=== PATIENT | female | born 1975 | race Caucasian/White ===

== ENCOUNTER 2020-12-07 07:28 | Inpatient (IN) ==
--- NOTE | 2020-11-23 15:44 | PAT Medication Instructions ---
Medication Instructions Date of Service November 23, 2020 Home Medications sumatriptan succinate [Imitrex] 100 mg PO UD PRN Take morning of surgery With a small sip of water, OTHERWISE NOTHING TO EAT OR DRINK AFTER MIDNIGHT: sumatriptan succinate [Imitrex] 100 mg PO UD PRN (if needed) Other Notes If you have any questions please call us at [phone] or [phone] or [phone] or [phone]
--- NOTE | 2020-11-24 14:45 | Anesthesiology Consultation ---
Date of Service November 24, 2020 Assessment & Plan (1) Encounter for pre-operative examination: COVID screening: Per assessment on 11/24: Travel screen negative, no known COVID- 19 positive contacts or current COVID-19 related symptoms. Surgeon arranging preop COVID testing. Awaiting results. Chart Review Chart Review: Acceptable Risk for Surgery and Patient seen in Pre Admission Testing Teaching & Discussion Pre-Anesthesia Teaching/Discussion Notes: Instructed NPO after midnight before surgery,except medications with 15 cc of water. Medication instructions provided according to the PAT guidelines. History Surgery Operation Date: 12/07/20 12:50 Proposed Procedures p C5-C7 Anterior Cervical Discectomy and Fusion, *SPINAL CORD MONITORING* - Shai Fritz DO Height/Weight Height: 5 ft Weight: 77.3 kg Allergies Allergy/AdvReac Type Severity Reaction Status Date / Time ciprofloxacin [Cipro] Allergy Intermediate Diffuse Verified 11/24/20 11:42 rash ketorolac Allergy Intermediate Diffuse Verified 11/24/20 11:42 rash morphine Allergy Intermediate Diffuse Verified 11/24/20 11:42 rash tramadol Allergy Intermediate Diffuse Verified 11/24/20 11:42 rash Cipro Allergy Unknown UNK Verified 05/18/16 21:39 Medications Home Medications Medication Instructions Recorded Confirmed Last Taken sumatriptan succinate [Imitrex] 100 mg PO UD PRN 11/23/20 11/23/20 Unknown Past Medical History Medical History History of blood transfusion 10+ years ago r/t surgical complications Hx of endometriosis Migraine Exercise / Class Metabolic Activity II 4-5 Yardwork/Stairs/Walk up hill (one flight of stairs (no chest pain, no sob)) Past Family History Family History Mother Family history of diabetes mellitus Past Surgical History Surgical History H/O total hysterectomy History of appendectomy History of bowel resection + colonostomy (d/t bowel georgette during laparoscopic procedure) History of cholecystectomy History of colonoscopy History of colostomy reversal History of laparoscopy [place] teeth removed Past Anesthesia History No Hx of Anesthesia Complications (except PONV) and No Family Hx of Anesthesia Complications (except mother (post-op nausea)) History of PONV History of PONV (*No issue with more recent surgery when pre-treatment given*) and Hx of Motion Sickness STOP BANG Total 0 Social History Smoking Status: Current every day smoker tobacco type: cigarettes Smoking cigarettes per day: 10 cig/day (tobacco use x 5 days) Do You Dip or Chew Tobacco: No Hx Alcohol Use: Yes alcohol intake frequency: holidays/special occasions only Hx Substance Use: No substance use type: does not use Review of Systems + chronic cough r/t allergies. + snoring. No witnessed apnea events. Patient denies chest pain, shortness of breath, dyspnea on exertion, fever, chills, wheezing, palpitations. Physical Exam Vital Signs VITALS BP 125/78 P 84 TEMP 98.6 SP02 97%RA RESP 16 PHYSICAL Significantly decreased extension range of motion. Full TMJ range of motion. TMD 4 finger breaths Mallampati Score 2 Dentition: full denture upper, Lungs: clear throughout to auscultation Cardiac: regular rate and rhythm, no murmurs noted Spine: normal Extremities: no edema Lab Results Anesthesia Preop Results Results Anesthesia Widget: WBC 7.15 K/uL (4.8-10.8) 11/24/20 Hgb 13.5 g/dL (12.0-16.0) 11/24/20 Hct 40.1 % (37-47) 11/24/20 Plt 285 K/uL (130-400) 11/24/20 Na 141 mmol/L (136-145) 11/24/20 K 3.9 mmol/L (3.5-5.1) 11/24/20 Cl 107 mmol/L (98-107) 11/24/20 CO2 30 mmol/L (21-32) 11/24/20 BUN 14 mg/dl (7-18) 11/24/20 Creat 0.89 mg/dl (0.6-1.2) 11/24/20 Glucose Level 83 mg/dl (70-99) 11/24/20 PT 10.1 Seconds (9.0-12.0) 11/24/20 PTT 26.5 Seconds (21.0-31.0) 11/24/20 INR 1.0 (0.9-1.1) 11/24/20 Urine Color Yellow 11/24/20 Urine Appearance Clear (Clear) 11/24/20 Urine pH 5.5 (4.5-7.5) 11/24/20 Urine Specific [place] 1.016 (1.000-1.030) 11/24/20 Urine Protein Negative (Negative) 11/24/20 Urine Glucose (UA) Negative (Negative) 11/24/20 Urine Ketones Negative (Negative) 11/24/20 Urine Blood Negative (Negative) 11/24/20 Urine Nitrite Negative (Negative) 11/24/20 Urine Bilirubin Negative (Negative) 11/24/20 Urine Urobilinogen Negative (Negative) 11/24/20 Urine Leukocyte Esterase Negative (Negative) 11/24/20 Blood Type A Negative 11/24/20 Antibody Screen NEGATIVE 11/24/20 Testing Electrocardiogram Date: 09/14/20 Sinus rhythm at 77 bpm. Normal ECG. Chest X-Ray Date: 09/14/20 Findings: + NAD
[~2020-12-07 07:28] MED LIST: ACETAMINOPHEN 500 MG TAB PO SCH; CeleBREX 200 MG CAP PO SCH; GABAPENTIN 900 MG DOSE PO SCH; LR 15ML/HR IV SCH; ceFAZolin 1000MG 1,000 MG/7.5 ML SYR IV SCH
[2020-12-07] MEDS ORDERED: ePHEDrine sulfate 50 MG/ML AMP IV PRN (09:12)
[2020-12-07] MEDS ORDERED: ONDANSETRON INJ 2 MG/ML 2 ML VIAL IV PRN ×2 (09:12→13:30)
[2020-12-07] MEDS ORDERED: ATROPINE SULFATE 0.1 MG/ML 10ML SYR IV PRN (09:12)
[2020-12-07] MEDS ORDERED: HYDROmorphone INJ 2 MG/ML SYR/VIAL IV PRN (09:12)
[2020-12-07] MEDS ORDERED: ALBUT/IPRATROP 3MG/0.5MG NEB 3 ML VIAL NEB STA (09:12)
[2020-12-07] MEDS ORDERED: PROMETHAZINE HCL 12.5 MG in SODIUM CHLORIDE 0.9% 50 ML IV PRN ×2 (09:12→13:30)
--- NOTE | 2020-12-07 09:19 | History & Physical Bridge Note ---
Date of Service December 07, 2020 History & Physical Bridge Note I have examined the patient, reviewed the History & Physical and in the interval since the performance of the History & Physical I have noted the following changes of clinical significance: no changes noted
--- NOTE | 2020-12-07 09:22 | History & Physical Report ---
Date of Service December 07, 2020 Assessment & Plan (1) Cervical stenosis of spinal canal: Admission and Anticipated Discharge Date Admission Date: C5 C7 anterior cervical discectomy and fusion History of Present Illness Chief Complaint: Neck and arm pain Primary Care Provider: Kael Jeffrey This is a 45-year-old female with chronic persistent neck and arm pain. Failing since course of nonoperative care she is here for surgical invention. Allergies Allergy/AdvReac Type Severity Reaction Status Date / Time ciprofloxacin [Cipro] Allergy Intermediate Diffuse Verified 12/07/20 08:24 rash ketorolac Allergy Intermediate Diffuse Verified 12/07/20 08:24 rash morphine Allergy Intermediate Diffuse Verified 12/07/20 08:24 rash tramadol Allergy Intermediate Diffuse Verified 12/07/20 08:24 rash Cipro Allergy Unknown UNK Verified 05/18/16 21:39 Home Medications Medication Instructions Recorded Confirmed Type sumatriptan succinate [Imitrex] 100 mg PO UD PRN 11/23/20 12/07/20 History Past Med/Surg History Medical History History of blood transfusion 10+ years ago r/t surgical complications Hx of endometriosis Migraine Surgical History H/O total hysterectomy History of appendectomy History of bowel resection + colonostomy (d/t bowel georgette during laparoscopic procedure) History of cholecystectomy History of colonoscopy History of colostomy reversal History of laparoscopy [place] teeth removed Family History Mother Family history of diabetes mellitus Social History Smoking Status: Current every day smoker Cigarettes Per Day: 10 cig/day (tobacco use x 5 days); Second Hand Exposure: No; Do You Dip or Chew Tobacco: No; Tobacco Cessation Education Requested by Patient: No Hx Alcohol Use: Yes Hx Substance Use: No Preferred Language: [place] [employer] Magistrate Required: No Beliefs That Will Affect Care: None Current Living Situation: Family Current Living Situation Comment: WITH DAUGHTER Feels Safe at Home: Yes Safety Concerns: Feels Safe At This Time Assistive Devices: Contacts, Denture - Upper and Glasses Physical Exam Physical Exam: Patient is alert and oriented Heart regular in rhythm Lungs clear to auscultation Results & Data ([facility]) Vital Signs (Past 12 Hours) Vital Signs Temp Pulse Resp BP Pulse Ox 12/07/20 08:26 36.9 C 77 20 146/99 H 96
[2020-12-07] MEDS ORDERED: ROCURONIUM BROMIDE 10 MG/ML 5 ML VIAL IV ONE (09:26)
[2020-12-07] MEDS ORDERED: LIDOCAINE 2% 2 ML VIAL/AMP(20MG/ML) INFIL ONE (09:26)
[2020-12-07] MEDS ORDERED: HYDROmorphone INJ 2 MG/ML SYR/VIAL ONE (09:27)
[2020-12-07] MEDS ORDERED: fentaNYL citrate 100 MCG/2 ML VIAL ONE (09:27)
[2020-12-07] MEDS ORDERED: MIDAZOLAM HCL 1 MG/ML 2ML VIAL ONE (09:27)
[2020-12-07] MEDS ORDERED: ESMOLOL HCL INJ 10 MG/ML 10ML VIAL IV ONE (10:18)
[2020-12-07] MEDS ORDERED: FLOSEAL HEMOSTATIC MATRIX 10ML TOP ONE (10:22)
[2020-12-07] MEDS ORDERED: METOPROLOL TARTRATE 1 MG/ML VIAL IV ONE (10:40)
--- NOTE | 2020-12-07 11:18 | Operative Report ---
Post Operative Report Pre & Post Diagnosis Operation Date: 12/07/20 09:35 Pre-Op Diagnosis: Spinal Stenosis, Cervical Region Post-Op Diagnosis: Spinal Stenosis, Cervical Region I identified the patient and participated in the time-out.: Yes Procedure Operation Date: 12/07/20 09:35 Actual Procedures #1 anterior cervical discectomy with bilateral foraminotomies C5-C6 and C6-C7. #2 anterior cervical arthrodesis C5-C6 C6-C7. #3 placement of Spira cage 7 mm in height at C5-6 and 8 mm height at C 67 with I factor. #4 application of 5 complete and screws from C5-C7. Surgeon Shai Fritz, DO Furniture Polisher Domitila Galvez Estimated Blood Loss 10 Findings Consistent with Post-Op Diagnosis Specimens None Indications This is a 45-year-old female who presents with above-mentioned diagnosis after failing since course of nonoperative care she is here for the above-mentioned procedure. Description of Procedure Patient was met with identified informed consent obtained. Patient was then taken to the operative suite underwent ablation placed in supine position Dave table head Rowe drake. All bony prominences well-padded eyes inspected to ensure no external pressure placed upon the. This point the anterior cervical spine was prepped and draped in a sterile fashion. With assistance of fluoroscopy identified the C6 vertebral body and a transverse incision was placed along the right anterior aspect of the cervical spine overlying this region. Sharp dissection with the assistance of bipolar electrocautery was performed down to and exposing the anterior cervical spine from C 5 to C7. Several 10 retractors placed. Then performed a complete discectomy of C6-C7 out to the uncovertebral's bilaterally. [place] distracting pins utilized to assist in visualization. I then performed a complete discectomy including removal of all posterior annular fibers longitudinal ligament and bilateral foraminotomies performed. Identified significant disc material in the bilateral foramina. After complete decompression endplates were burred to subcortical being bone and a 7 mm spiral cage filled with I factor tapped in position. Then proceeded to C6-C7 and again a complete discectomy was performed out to the uncovertebral joints bilaterally. [place] distracting pins again utilized. Removed all posterior annular fibers and longitudinal ligament performed bilateral foraminotomies. Endplates were then burred to subcortical bleeding bone and a 8 mm spiral cage filled I factor tapped in position. Distracting apparatus was removed and a 5 complete screws applied with the assistance of fluoroscopy. The incision was then copiously irrigated explored to ensure no damage to surrounding structures remaining bleeding. 10 round [place] drain inserted. The incision was then closed with 2 Vicryl in the fascia and 4 Monocryl for final skin closure. Steri-Strips dressings placed. Patient will continue to PACU stable condition. Please note spinal cord monitoring was utilized at the procedure no changes noted. Lastly Domitila Galvez was present at the entire surgery while the patient positioning complex portions of the surgery and final skin closure. I attest to the content of the Intraoperative Record and any orders documented therein. Any exceptions are noted below.
[2020-12-07] MEDS ORDERED: SUGAMMADEX SODIUM 200 MG/2 ML VIAL IV ONE (11:26)
[2020-12-07] MEDS: fentaNYL citrate 100 MCG/2 ML VIAL IV PRN ×4 (11:45→12:10)
--- NOTE | 2020-12-07 11:49 | Fluoroscopy Report ---
INTRAOPERATIVE RADIOGRAPHS CLINICAL HISTORY: C5-C7 spinal fusion. Fluoroscopy time: 13 seconds. FINDINGS: 3 spot fluoroscopic views of the cervical spine are presented. An endotracheal tube is in p lace. There is postoperative change from discectomy at C5-C6 and C6-C7 with anterior fusion from C5 C 7. The orthopedic hardware appears intact. IMPRESSION: Intraoperative images from cervical spine fusion as above. Electronically signed by: Jericho Oliva M.D. 12/07/2020 11:48 AM
--- NOTE | 2020-12-07 12:50 | Anesthesiology Progress Note ---
Date of Service December 07, 2020 Anesthesia Post Procedure Vital Signs Vital Signs: Temp Pulse Pulse Resp BP Pulse Ox 12/07/20 12:40 36.7 C 77 17 114/52 L 98 12/07/20 12:30 63 12 110/70 98 12/07/20 12:20 66 14 126/84 94 12/07/20 12:10 64 12 127/78 98 12/07/20 12:00 63 12 135/78 97 12/07/20 11:50 62 13 143/86 H 99 12/07/20 11:40 73 15 159/95 H 100 12/07/20 11:34 36.6 C 81 14 145/116 H 95 12/07/20 09:21 81 16 95 12/07/20 08:26 36.9 C 77 20 146/99 H 96 Pain Intensity Neck: Pain Intensity: 8 Transfer of Care Handoff Completed per policy Notes Mental Status: alert / awake / arousable and participated in evaluation Patient Amnestic to Procedure: Yes Nausea / Vomiting: adequately controlled Pain: adequately controlled Airway Patency, RR, SpO2: stable & adequate BP & HR: stable & adequate Hydration State: stable & adequate Anesthetic Complications: no major complications apparent and Pt Satisfied with anesthetic care Notes: pt had significant bigemeny throughout the case. pt should be observed on telemetry
[2020-12-07] MEDS ORDERED: FAMOTIDINE 20 MG TAB PO PRN (13:30)
[2020-12-07] MEDS ORDERED: HYDROCODONE/ACETAMOPHEN 5/325MG TAB PO PRN (13:30)
[2020-12-07] MEDS ORDERED: METOCLOPRAMIDE HCL INJ 5 MG/ML 2 ML VIAL IV PRN (13:30)
[2020-12-07] MEDS ORDERED: ACETAMINOPHEN 500 MG TAB PO PRN (13:30)
[2020-12-07] MEDS ORDERED: diphenhydrAMINE Capsule 25 MG CAP PO PRN (13:30)
[2020-12-07] MEDS ORDERED: hydrOXYzine HCl 25 MG TAB PO PRN (13:30)
[2020-12-07] MEDS ORDERED: MAGNESIUM HYDROXIDE SUSP 30 ML UDC PO PRN (13:30)
[2020-12-07] MEDS ORDERED: RACEPINEPHRINE 2.25% NEBU SOLN 0.5 ML VIAL INH PRN (13:30)
[2020-12-07] MEDS ORDERED: SUMAtriptan succinate 100 MG TAB PO PRN (13:30)
[2020-12-07] MEDS ORDERED: HYDROmorphone INJ 1 MG/ML SYRINGE IV PRN (13:30)
[2020-12-07] MEDS ORDERED: ONDANSETRON 4 MG OD TAB PO PRN (13:30)
[2020-12-07] MEDS ORDERED: LORazepam 0.5 MG/1 ML VIAL IV PRN (13:30)
[2020-12-07] MEDS ORDERED: DO NOT ADMINISTER FLU VACCINE PRN (13:30)
[2020-12-07] MEDS ORDERED: ACETAMINOPHEN 1,000 MG/100 ML VIAL IV PRN (13:30)
[2020-12-07] MEDS ORDERED: dexAMETHasone 8 MG in SYRINGE 0 ML IV PRN (13:30)
[2020-12-07] MEDS ORDERED: SOD PHOSPHATE/SOD BIPHOSPHATE ENEMA 132 ML BTL PR PRN (13:30)
[2020-12-07] MEDS ORDERED: oxyCODONE HCL IR 5 MG TAB (IMMEDIATE RELEASE) PO PRN (13:30)
[2020-12-07] MEDS ORDERED: DO NOT ADMINISTER PNEUMOCOCCAL VACCINE PRN (13:30)
[2020-12-07] MEDS ORDERED: ALUMINUM/MAGNESIUM SUSP 30 ML UDC PO PRN (13:30)
[2020-12-07] MEDS ORDERED: LORazepam 0.5 MG TAB PO PRN (13:30)
[2020-12-07] MEDS ORDERED: NALOXONE HCL 0.4 MG/1 ML VIAL/CARP IV PRN (13:30)
--- NOTE | 2020-12-07 14:30 | Hospitalist Consultation ---
Date of Consultation December 07, 2020 History of Present Illness Reason for Consultation: post op medical mgmt Requesting Physician: Dr. Fritz Attending Physician: Shai Fritz, DO History of Present Illness This is a 45yo F with PMH of migraine headaches who is POD #0 s/p anterior cervical discectomy with bilateral foraminotomies C5-C6 and C6-C7 by Dr. Fritz. Allergies Allergy/AdvReac Type Severity Reaction Status Date / Time ciprofloxacin [Cipro] Allergy Intermediate Diffuse Verified 12/07/20 08:24 rash ketorolac Allergy Intermediate Diffuse Verified 12/07/20 08:24 rash morphine Allergy Intermediate Diffuse Verified 12/07/20 08:24 rash tramadol Allergy Intermediate Diffuse Verified 12/07/20 08:24 rash Cipro Allergy Unknown UNK Verified 05/18/16 21:39 Home Medications Medication Instructions Recorded Confirmed Type sumatriptan succinate [Imitrex] 100 mg PO UD PRN 11/23/20 12/07/20 History Patient History Medical History History of blood transfusion 10+ years ago r/t surgical complications Hx of endometriosis Migraine Surgical History H/O total hysterectomy History of appendectomy History of bowel resection + colonostomy (d/t bowel georgette during laparoscopic procedure) History of cholecystectomy History of colonoscopy History of colostomy reversal History of laparoscopy [place] teeth removed Family History Mother Family history of diabetes mellitus Social History Smoking Status: Current every day smoker Cigarettes Per Day: 10 cig/day (tobacco use x 5 days); Second Hand Exposure: No; Do You Dip or Chew Tobacco: No; Tobacco Cessation Education Requested by Patient: No Hx Alcohol Use: Yes Hx Substance Use: No Preferred Language: [employer] Work[employer] Required: No Beliefs That Will Affect Care: None Current Living Situation: Family Current Living Situation Comment: WITH DAUGHTER Feels Safe at Home: Yes Safety Concerns: Feels Safe At This Time Assistive Devices: Contacts, Denture - Upper and Glasses Results & Data Results & Data ([facility]) Vital Signs (Past 12 Hours) Vital Signs Temp Pulse Pulse Resp BP Pulse Ox Pulse Ox 12/07/20 14:00 70 18 116/67 94 12/07/20 13:55 94 12/07/20 13:45 76 20 98 12/07/20 13:26 37 C 91 H 18 122/77 94 12/07/20 13:05 68 19 128/72 96 12/07/20 12:50 83 20 121/80 98 12/07/20 12:40 36.7 C 77 17 114/52 L 98 12/07/20 12:30 63 12 110/70 98 12/07/20 12:20 66 14 126/84 94 12/07/20 12:10 64 12 127/78 98 12/07/20 12:00 63 12 135/78 97 12/07/20 11:50 62 13 143/86 H 99 12/07/20 11:40 73 15 159/95 H 100 12/07/20 11:34 36.6 C 81 14 145/116 H 95 12/07/20 09:21 81 16 95 12/07/20 08:26 36.9 C 77 20 146/99 H 96
[2020-12-07] MEDS: LACTATED RINGER'S 1,000 ML IV SCH ×2 (14:39→23:47)
--- NOTE | 2020-12-07 15:02 | Hospitalist Consultation ---
Date of Consultation December 07, 2020 Assessment & Plan (1) Ventricular bigeminy: Noted during intraoperative- 948 on telemetry recording. - ECG on arrival to floor compared to preoperative in August with non-specific ST changes- no dynamic changes and no associated cardiac symptoms - BMP and electrolytes ordered on arrival to PCU- Normal NA, K, Mg, iCA 1.11 - HCO3- 27; no gap - Troponin <0.015 - No hypoxia noted on review of OR case or while on the telemetry floor - Will obtain ECHO to rule out any structural causes - Continue to rule out acute causes, telemetry overnight- may be associated with cervical ganglia and [employer]ICIAN irritation with cervical surgical procedure (2) Cervical stenosis of spinal canal: As per HPI - Postoperative care per orthopaedics (3) Smoker: Current smoker- no acute pulmonary effects (4) Migraines: Patient reports good effect with triptan, denies having any palpitations with use of this medication prior. Supervising Physician Co-Signing Physician Notes Attending Attestation/Consult Note: Pt seen/examined, chart reviewed, care plan d/w SHY Bradley. I agree with the santos components of his documentation. 45yo female with cervical spine stenosis s/p anterior cervical discectomy with bilateral foraminotomies at C5-C6 and C6-C7 along with anterior cervical arthrodesis C5-C6 and C6-C7 today by Dr Fritz. Intra-op noted to have runs of ventricular bigeminy. In recovery also had PVCs. Consulted for such. Saw the patient post-op on the tele unit. Only complaint is that of neck pain. Denies cp, dyspnea, palpitations. PMH, PSH, allergies, meds, sochx, famhx - reviewed gen - NAD neck - c-spine collar in place; dressings right anterior neck intact, mildly blood-soaked heart - RRR, extra beats; s1 s2; no murmur lungs - CTA b/l abd - soft ext - no edema neuro - strength 5/5 x 4 exts tele strips from the operation reviewed - indeed had runs of ventricular bigeminy EKG - NSR, no PVCs or ventricular bigeminy; NS ST changes anteriorly and I/AVL A/P: 1. ventricular bigeminy noted on monitoring intra-op. Post-op troponin negati ve. K/mag levels wnl. 2. no prior h/o structural heart disease. 3. no prior h/o dysrhythmia. 4. no prior h/o cardiovascular symptoms. No cardiovascular symptoms post-op. Plan - cont telemetry. echo in am - r/o structural heart disease, LV dysfunction, etc. CBC, bmp in am. If echo is normal no further work-up needed. Jefry Crane MD History of Present Illness Reason for Consultation: arrhythmia under general anesthesia Requesting Physician: Shai Fritz; Attending Physician: Shai Fritz DO History of Present Illness 45 YOF with past medical history of Migraines on Sumatriptan, 1/2 PPD every day smoker; smoked evening prior to surgery. No further records are available for review. Patient is POD #0 for ACDF with bilateral foraminotomies C5-C6-C7, with cage at C5-C6 and screws C5-C7. Patient reports that she originally injured herself while lifting a large box at work. Internal Medicine was consulted for intraoperative bigeminy. 2 rhythm strips reviewed on the chart with Bigeminy and one strip with PVC. She was recovered in PACU and is now on telemetry unit. Her telemetry rhythm was reviewed since arriving to the PCU which revealed NSR without any ectopy. Chart reviewed including intraoperative record- Esmolol x2 doses, no hypoxia noted, reversed with sugammadex and recovered. No intraoperative labs for review. ECG performed on the PCU following case. NSR no ectopy, nonspecific ST changes, no acute dynamics. Patient is in room drowsy but easily arousable. Patient denies any breathing difficulties, is on NC with Spo2 96-98%; HR 60s, denies any chest pain or discomfort, no nausea, no vomiting. Patient did report smoking last evening; denies any other drug use or vaping, does not use caffeine or energy drinks. No history reported of palpitations prior. Allergies Allergy/AdvReac Type Severity Reaction Status Date / Time ciprofloxacin [Cipro] Allergy Intermediate Diffuse Verified 12/07/20 08:24 rash ketorolac Allergy Intermediate Diffuse Verified 12/07/20 08:24 rash morphine Allergy Intermediate Diffuse Verified 12/07/20 08:24 rash tramadol Allergy Intermediate Diffuse Verified 12/07/20 08:24 rash Cipro Allergy Unknown UNK Verified 05/18/16 21:39 Home Medications Medication Instructions Recorded Confirmed Type sumatriptan succinate [Imitrex] 100 mg PO UD PRN 11/23/20 12/07/20 History oxycodone 5 mg PO Q6H PRN #20 tab 12/08/20 Rx Patient History Medical History (Updated 12/07/20 @ 15:24 by SHY Newman) History of blood transfusion 10+ years ago r/t surgical complications Hx of endometriosis Migraine Migraines Smoker Ventricular bigeminy Surgical History H/O total hysterectomy History of appendectomy History of bowel resection + colonostomy (d/t bowel georgette during laparoscopic procedure) History of cholecystectomy History of colonoscopy History of colostomy reversal History of laparoscopy [place] teeth removed Family History Mother Family history of diabetes mellitus Social History (Updated 12/11/20 @ 11:40 by Jefry Crane) Smoking Status: Current every day smoker Cigarettes Per Day: 10; Second Hand Exposure: No; Hx Alcohol Use: Yes Hx Substance Use: No Preferred Language: Guyanese Herbarium Worker Required: No Beliefs That Will Affect Care: None Current Living Situation: Family Current Living Situation Comment: WITH DAUGHTER Feels Safe at Home: Yes Assistive Devices: None Review of Systems Review of Systems: REVIEW OF SYSTEMS: Constitutional: No fever, sweats or chills Eyes: No diplopia, no worsening or blurred vision ENT: normal hearing, no trouble swallowing Respiratory: No cough, sputum, dyspnea at rest or on exertion Cardiovascular: No chest pain, tightness or palpitations Abdomen: No pain, nausea, vomiting, diarrhea or constipation Musculoskeletal: (+) cervical neck and shoulder pain; No other joint pain, calf pain, swelling Neurologic: No weakness, numbness/tingling, or balance problems Psychiatric: No anxiety or depression Skin: No rash or itch Physical Exam Physical Exam: PHYSICAL EXAM: General: awake, alert, no apparent distress Head: Normocephalic, atraumatic ENT: PERRL, EOMI, no pharyngeal exudate, mucous membranes moist Neuro: AAO x 3, speech clear and appropriate, strength intact bilaterally 5/5, sensation intact and equal all extremities and dermatomes, no pronator drift Chest: equal rise and fall of the chest, no accessory muscle use, no heaves or thrills, scattered rhonchi auscultation, on room air Cardiac: Regular rate and rhythm, telemetry reviewed-NSR, skin warm dry, cap refill <3 seconds, peripheral pulses +2 no JVD, no murmur, no edema GI: NABS x 4 quadrants, soft, nontender to palpation, no rebound, guarding or tenderness : no CVA tenderness, or pain with urination Extremities: Normal inspection, no peripheral edema or erythema, calfs nontender to palpation, patient reports improvement to her tingling in her fingers Psych: Normal mood and affect Skin: no rash or erythema Results & Data Results & Data ([facility]) Vital Signs (Past 12 Hours) Vital Signs Temp Pulse Pulse Resp BP Pulse Ox Pulse Ox 12/07/20 14:00 70 18 116/67 94 12/07/20 13:55 94 12/07/20 13:45 76 20 98 12/07/20 13:26 37 C 91 H 18 122/77 94 12/07/20 13:05 68 19 128/72 96 12/07/20 12:50 83 20 121/80 98 12/07/20 12:40 36.7 C 77 17 114/52 L 98 12/07/20 12:30 63 12 110/70 98 12/07/20 12:20 66 14 126/84 94 12/07/20 12:10 64 12 127/78 98 12/07/20 12:00 63 12 135/78 97 12/07/20 11:50 62 13 143/86 H 99 12/07/20 11:40 73 15 159/95 H 100 12/07/20 11:34 36.6 C 81 14 145/116 H 95 12/07/20 09:21 81 16 95 12/07/20 08:26 36.9 C 77 20 146/99 H 96 Laboratory Results Abnormal lab results 12/07/20 12/07/20 Range/Units 08:29 14:41 Glucose 126 H (70-99) mg/dl Crossmatch See Detail Diagnostic Findings Cervical Spine X-Ray 12/07/20 09:35 INTRAOPERATIVE RADIOGRAPHS CLINICAL HISTORY: C5-C7 spinal fusion. Fluoroscopy time: 13 seconds. FINDINGS: 3 spot fluoroscopic views of the cervical spine are presented. An endotracheal tube is in place. There is postoperative change from discectomy at C5-C6 and C6-C7 with anterior fusion from C5 C7. The orthopedic hardware appears intact. IMPRESSION: Intraoperative images from cervical spine fusion as above. Electronically signed by: Jericho Oliva M.D. 12/07/2020 11:48 AM Medications Administered Acetaminophen (Acetaminophen 500 Mg Tab) 1,000 mg PO PREOP HARRIS Stop: 12/07/20 18:00 Last Admin: 12/07/20 09:00 Dose: 1,000 mg Documented by: [id number] Gabapentin (Gabapentin 900 Mg Dose) 900 mg PO PREOP HARRIS Stop: 12/07/20 18:00 Last Admin: 12/07/20 09:00 Dose: 900 mg Documented by: [id number] Lactated Ringer's (Lr) 1,000 mls @ 15 mls/hr IV .Q24H HARRIS Stop: 12/08/20 05:59 Last Infusion: 12/07/20 09:43 Dose: 0 mls/hr Documented by: [id number] Admin: 12/07/20 08:58 Dose: 15 mls/hr Documented by: [id number] Cefazolin Sodium (Ancef 1000mg) 1,000 mg in 7.5 mls @ 2.5 mls/min IV PREOP HARRIS; Protocol Stop: 12/07/20 18:00 Last Admin: 12/07/20 09:43 Dose: 2.5 mls/min Documented by: [id number] Lactated Ringer's (Lr) 1,000 mls @ 100 mls/hr IV .Q10H HARRIS Stop: 01/06/21 13:29 Last Admin: 12/07/20 14:39 Dose: 100 mls/hr Documented by: [id number] Oxycodone HCl (Oxycodone Hcl Ir 5 Mg Tab (Immediate Release)) 5 - 10 mg PO Q4H PRN PRN Reason: Pain & Pre PT Stop: 12/21/20 13:29 Last Admin: 12/07/20 15:01 Dose: 10 mg Documented by: [id number] Discontinued Medications Albuterol (Albut/Ipratrop 3mg/0.5mg Neb 3 Ml Vial) 3 ml NEB NOW STA Stop: 12/07/20 09:13 Last Admin: 12/07/20 09:21 Dose: 3 ml Documented by: [id number] Cefazolin Sodium (Cefazolin 250 Mg/Ml 1 Gm Vial) Confirm Administered Dose 1,000 mg .ROUTE .STK-MED ONE Stop: 12/07/20 09:20 Last Admin: 12/07/20 10:21 Dose: 1,000 mg Documented by: [id number] Fentanyl Citrate (Fentanyl Citrate 100 Mcg/2 Ml Vial) 50 mcg IV Q5M PRN PRN Reason: PACU Use Only-Pain Stop: 12/07/20 17:13 Last Admin: 12/07/20 12:10 Dose: 50 mcg Documented by: [id number] Admin: 12/07/20 11:55 Dose: 50 mcg Documented by: [id number] Admin: 12/07/20 11:50 Dose: 50 mcg Documented by: [id number] Admin: 12/07/20 11:45 Dose: 50 mcg Documented by: [id number] Miscellaneous ( Floseal Hemostatic Matrix 10ml) 10 ml TOP ONCE ONE Stop: 12/07/20 10:23 Last Admin: 12/07/20 10:22 Dose: 10 ml Documented by: [id number] Sugammadex Sodium (Sugammadex Sodium 200 Mg/2 Ml Vial) Confirm Administered Dose 100 mg IV .STK-MED ONE Stop: 12/07/20 11:27 Last Admin: 12/07/20 14:44 Dose: Not Given Documented by: [id number] Additional Comments: Normal sinus rhythm Nonspecific T wave abnormality Abnormal ECG PG Care Time/CCT Total # of Minutes Spent Total Time Spent with Patient: Total time spent is greater than 50% in coordination of care (as documented) at patient's floor/unit and/or counseling patient: Coding Level of Care Code 49966 Inpt Consult Level 3 Diagnoses Ventricular bigeminy I49.8 Cervical stenosis of spinal canal M48.02 Smoker F17.200 Migraines G43.909 Intractability: not intractable Migraine type: unspecified Status migrainosus presence: without status migrainosus (1) Migraines Intractability: not intractable Migraine type: unspecified Status migrainosus presence: without status migrainosus Qualified Code(s): G43.909 - Migraine, unspecified, not intractable, without status migrainosus
[2020-12-07 15:12] LABS: BUN Creatinine Ratio 11.3 (10-20); Blood Urea Nitrogen 10 mg/dl (7-18); Calcium 9.2 mg/dl (8.5-10.1); Carbon Dioxide 27 mmol/L (21-32); Chloride 106 mmol/L (98-107); Creatinine Clr Calc Pharmacy 79.4 ml/min; Est GFR (Non-African American) 84.5 ml/min; Glucose 126 mg/dl (70-99); Potassium 3.9 mmol/L (3.5-5.1); Sodium 139 mmol/L (136-145)
[2020-12-07 15:21] LABS: Troponin I < 0.015 ng/ml (0-0.045)
[2020-12-07] MEDS: ceFAZolin 2000MG 2,000 MG/15 ML SYR IV SCH (17:49)
[2020-12-07] MEDS: HYDROmorphone INJ 0.5 MG/0.5 ML SYR IV PRN ×3 (17:49→23:46)
--- NOTE | 2020-12-07 17:54 | Electrocardiogram Report ---
Test Reason : Blood Pressure : / mmHG Vent. Rate : 068 BPM Atrial Rate : 068 BPM P-R Int : 160 ms QRS Dur : 086 ms QT Int : 418 ms P-R-T Axes : 037 033 065 degrees QTc Int : 444 ms Normal sinus rhythm Nonspecific T wave abnormality Abnormal ECG No previous ECGs available Confirmed by Jose Lyon ([id number]) on 12/07/2020 5:54:12 PM Referred By: Shai Fritz Confirmed By:Michael Lyon
[2020-12-07] MEDS ORDERED: DOCUSATE SODIUM/SENNA 50/8.6MG TAB PO SCH (21:00)
[2020-12-08] MEDS: ceFAZolin 2000MG 2,000 MG/15 ML SYR IV SCH (02:42)
[2020-12-08] MEDS: HYDROmorphone INJ 0.5 MG/0.5 ML SYR IV PRN ×4 (02:42→13:00)
[2020-12-08] MEDS ORDERED: POLYETHYLENE (MIRALAX) 17 GM PACK PO SCH (06:00)
[2020-12-08] MEDS ORDERED: Nursing to Pharmacy Communication SCH (08:00)
[2020-12-08] MEDS ORDERED: PERFLUTREN LIPID MICROSPHERE (DEFINITY) IV ONE (09:05)
--- NOTE | 2020-12-08 09:51 | XCELERA ---
[id number]
--- NOTE | 2020-12-08 13:03 | Discharge Summary ---
Date of Service December 08, 2020 Admission HPI Per Admitting Provider This is a 45-year-old female with chronic persistent neck and arm pain. Failing since course of nonoperative care she is here for surgical invention. Principal Diagnosis Cervical radiculopathy Discharge Data Allergies Allergy/AdvReac Type Severity Reaction Status Date / Time ciprofloxacin [Cipro] Allergy Intermediate Diffuse Verified 12/07/20 08:24 rash ketorolac Allergy Intermediate Diffuse Verified 12/07/20 08:24 rash morphine Allergy Intermediate Diffuse Verified 12/07/20 08:24 rash tramadol Allergy Intermediate Diffuse Verified 12/07/20 08:24 rash Cipro Allergy Unknown UNK Verified 05/18/16 21:39 Consultations 12/07/20 13:30 Consult Hospitalist Routine Procedures Performed Operation Date: 12/07/20 09:35 Actual Procedures p C5-C7 Anterior Cervical Discectomy and Fusion with Spinal Cord Monitoring(Not Applicable) - Shai Fritz DO Ordered Studies 12/07/20 09:35 FL cervical 2-3V Routine Hospital Course (1) Cervical stenosis of spinal canal: Patient went anterior cervical discectomy and fusion tolerates well second orthopedic for postoperative. Postop day 1 she was up and ambulating swallowing well no hoarseness. Arm symptoms improved. Pain well controlled. [place] drain decreasing probably. Subsequent discharge home. Discharge orders instructions from the chart for further review. Total Time Total Time Spent Total Time Spent (In Minutes): 20 minutes Discharge Plan Discharge Items Patient Disposition: Home - Self-Care Reason For Visit: Spinal Stenosis, Cervical Region Discharge Diagnosis: Cervical radiculopathy Activity: As commented below Non-emergency contact: Primary Care Provider Call non-emergency contact if: you have any medication questions Follow-up/Referrals: Kael Jeffrey D.O. [Primary Care Provider] - Diet: Regular Addtl Attending Provider Instructions: ACTIVITY RECOMMENDATIONS: SELF CARE INSTRUCTIONS AFTER CERVICAL FUSIONS 1. No smoking. Smoking drastically decreases the chance of a solid fusion. 2. No bending, lifting more than 5 pounds, or twisting (roll like a log when turning in bed). 3. You may shower 3 days after surgery. Thoroughly dry wound. Do not soak in the tub. 4. Cervical collar: Must be worn at all times including sleeping. You may remove the brace only to bath, eat and if you are sitting in a recliner. 5. Please walk as much as you can for exercise. Gradually increase the distance that you walk as your endurance increases. SPECIAL CARE INSTRUCTIONS: VERY IMPORTANT TO READ AND REVIEW A. Do not take any anti-inflammatory medications (i.e. Indocin, Advil, Aspirin, Naprosyn, Aleve, Motrin, etc.) as these may inhibit the chance of a solid fusion. Tylenol is okay to take. B. Your surgical incision has been closed with a cosmetic suture under the skin that will dissolve in about 6 weeks. In 14 days, you can use a pair of clean scissors and cut the suture that is left outside of the skin at the ends of your incision. C. Complications are uncommon, but please contact us if you have any signs or symptoms of: 1. wound infection (fever higher than 102.5 degrees F, redness, separation of wound, drainage, or increasing pain from the incision) 2. blood clots in legs (pain, swelling, redness and warmth in legs) 3. urinary tract infection (fever higher than 102.5 degrees, burning upon urination or increased frequency of urination) 4. nerve problems (inability to walk on your toes or heels, numbness, loss of bowel or bladder control) 5. any other symptoms that concern you. D. Please call the office at if you have any concerns or questions about your operation or recovery. MANAGING PAIN AFTER SPINAL SURGERY 1. Narcotic medication is intended for short-term use and will be provided for surgical pain. Surgical pain usually lasts for a period of 4-6 weeks. Narcotic medication includes Percocet, Vicodin, Darvocet, Tylenol #3 or Lortab. 2. Longer-term pain is more appropriately treated with non-narcotic medication such as Tylenol ES. 3. Muscle spasm is not appropriately treated with narcotics. Muscle relaxers such as Soma, Flexeril or Skelaxin can be used along with Tylenol ES. 4. Remember that we all live with some "aches and pains". This is not unusual or uncommon after an injury or as we get older. 5. We will provide appropriate medication within the normal guidelines of their prescribed use. We will also be very cautious and aware of potential abuse and extended duration of patients' medication needs. 6. Please allow 2-3 days to process refills. Prescriptions will not be mailed but must be picked up at the office. FOLLOW UP VISIT: Keep your scheduled follow-up appointment. Any questions, please call the office at . Pending Studies at Discharge: No Stand-Alone Forms: My [facility], Smoking Cessation Medications and DC Order Prescriptions: New oxycodone 5 mg tablet 5 mg PO Q6H PRN (Reason: pain, severe) Qty: 20 RF: 0 Continued sumatriptan succinate [Imitrex] 100 mg Tablet 100 mg PO UD PRN (Reason: MIGRAINES) RF: 0 Discharge Orders: Discharge Order (Routine); Ordered 12/08/20 Ordered By: Shai Fritz Admission Data Admit Date/Time: 12/07/20 11:49 Attending Provider: Shai Fritz Admit Provider: Shai Fritz Primary Care Provider: Kael Jeffrey Other Providers: Sarina Herbert
[2020-12-09] MEDS ORDERED: bisacodyL 10 MG SUPP PR PRN (11:19)
== END 2020-12-08 14:07 | disposition home or self-care (01) | DRG 473 ==
LOC: ASU 07:28 → 2S 11:49

== ENCOUNTER 2022-09-08 06:03 | Observation (INO) ==
--- NOTE | 2022-08-22 15:09 | PAT Medication Instructions ---
Medication Instructions Date of Service August 22, 2022 Home Medications Medication Instructions Recorded oxycodone 5 mg tablet 5 mg PO Q6H PRN pain, severe #20 12/08/20 tabs sumatriptan succinate 100 mg tablet (Imitrex) 100 mg PO UD PRN MIGRAINES oxycodone 5 mg tablet 5 mg PO Q6H PRN pain, severe celecoxib 200 mg capsule (Celebrex) 200 mg PO QAM gabapentin 300 mg tablet,extended release 24 hr 300 mg PO TID methocarbamol 750 mg tablet 750 mg PO TID ASK your surgeon for instructions celecoxib 200 mg capsule (Celebrex) 200 mg PO QAM DO NOT take the morning of surgery methocarbamol 750 mg tablet 750 mg PO TID Take morning of surgery With a small sip of water, OTHERWISE NOTHING TO EAT OR DRINK AFTER MIDNIGHT: sumatriptan succinate 100 mg tablet (Imitrex) 100 mg PO UD PRN MIGRAINES (if needed) oxycodone 5 mg tablet 5 mg PO Q6H PRN pain, severe (if needed) gabapentin 300 mg tablet,extended release 24 hr 300 mg PO TID Take evening before surgery sumatriptan succinate 100 mg tablet (Imitrex) 100 mg PO UD PRN MIGRAINES (if needed) oxycodone 5 mg tablet 5 mg PO Q6H PRN pain, severe (if needed) gabapentin 300 mg tablet,extended release 24 hr 300 mg PO TID methocarbamol 750 mg tablet 750 mg PO TID Other Notes If you have any questions please call us at [phone] or [phone] or [phone] or [phone]
--- NOTE | 2022-08-28 08:53 | Anesthesiology Consultation ---
Date of Service August 28, 2022 Assessment & Plan (1) Encounter for pre-operative examination: Chart Review Chart Review: Acceptable Risk for Surgery (pending PCP clearance 09/04/22 and response re: bigeminy on preop EKG ) and Patient seen in Pre Admission Testing - Awaiting PCP clearance scheduled 09/04/22 (please send optimization note with preop testing and will need response re: bigeminy on patient's EKG) -Discussed preop EKG with Dr. Magallanes (EKG shows bigeminy- patient was in bigeminy perioperatively with previous cervical surgery and transferred to telemetry floor- did have work up (including ECHO) but no formal evaluation by cardio. Will send note to PCP to see if further work up/evaluation needed Per PAT appt on 08/28/22, patient denies any recent travel or large group activities. Pt is vaccinated for Covid. Will leave to surgeon's discretion if preop Covid testing needed. Educated on importance of using Covid precautions one week prior to surgery Anterior Cervical Discectomy and Fusion C5-C7 12/07/20= Done under GA with Grade 1 view with MAC #3. ETT #7.5. Atraumatic DL x1- c-spine neutral Teaching & Discussion Pre-Anesthesia Teaching/Discussion Notes: Instructed NPO after midnight before surgery,except medications with 15 cc of water. Medication instructions provided according to the PAT guidelines. History Surgery Operation Date: 09/08/22 12:55 Proposed Procedures p C4-C5 Anterior Cervical Discectomy and Fusion, Spinal Cord Monitoring - Shai Fritz DO Height/Weight Height: 5 ft Weight: 74.1 kg Allergies Allergy/AdvReac Type Severity Reaction Status Date / Time ciprofloxacin [Cipro] Allergy Intermediate Diffuse Verified 08/22/22 14:35 rash ketorolac Allergy Intermediate Diffuse Verified 08/22/22 14:35 rash morphine Allergy Intermediate Diffuse Verified 08/22/22 14:35 rash tramadol Allergy Intermediate Diffuse Verified 08/22/22 14:35 rash Cipro Allergy Unknown UNK Verified 05/18/16 21:39 Medications Home Medications Medication Instructions Recorded Confirmed Last Taken sumatriptan succinate 100 mg 100 mg PO UD PRN MIGRAINES 11/23/20 08/22/22 12/06/20 06:00 tablet (Imitrex) oxycodone 5 mg tablet 5 mg PO Q6H PRN pain, severe #20 12/08/08/22/22 Unknown tabs celecoxib 200 mg capsule (Celebrex) 200 mg PO QAM 08/22/22 08/22/22 Unknown gabapentin 300 mg tablet,extended 300 mg PO TID 08/22/22 08/22/22 Unknown release 24 hr methocarbamol 750 mg tablet 750 mg PO TID 08/22/22 08/22/22 Unknown Past Medical History Medical History (Updated 08/28/22 @ 09:15 by Marielle Zamora PA-C) History of blood transfusion 10+ years ago r/t surgical complications Hx MRSA infection Dx ~2007 ([facility]), in wound tx w/abx- "cleared" Hx of endometriosis No current issues Hx of renal calculi Migraines Smoker Ventricular bigeminy Noted during 11/2020 ACDF- monitored on telemetry floor post op- BMP WNL; HCO3- 27- no gap; troponin negative, no hypoxia- ECHO done to rule out structural causes. 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" per records Exercise / Class Metabolic Activity II 4-5 Yardwork/Stairs/Walk up hill (one flight of stairs - no chest pain or SOB) Past Family History Family History Mother Family history of diabetes mellitus Past Surgical History Surgical History H/O total hysterectomy History of appendectomy History of bowel resection + colostomy (d/t bowel georgette during laparoscopic procedure) (colostomy later reversed) History of cholecystectomy History of colonoscopy History of colostomy reversal History of laparoscopy Hx of cervical spine surgery 2020 @ [facility] Nausea and vomiting after administration of anesthetic agent S/P cystoscopy with ureteral stent placement [place] teeth removed Past Anesthesia History No Hx of Anesthesia Complications (with exception to PONV) and No Family Hx of Anesthesia Complications (with exception to mother- PONV) History of PONV History of PONV (mild relief when pretreated ) and Hx of Motion Sickness Social History Smoking Status: Current every day smoker tobacco type: cigarettes Smoking cigarettes per day: 5 cigs/day Do You Dip or Chew Tobacco: No Hx Alcohol Use: Yes alcohol intake frequency: holidays/special occasions only Hx Substance Use: No substance use type: does not use Review of Systems - Medication induced seizure- "many years ago"- no seizure medications - no hx since that time- remote hx - Hx of snoring - no hx of sleep study Patient denies chest pain, shortness of breath, dyspnea on exertion, reflux, cough, wheezing, palpitations. No hx of stroke, OR. No hx of blood clots Physical Exam Vital Signs VITALS BP 132/67 P 63 TEMP 97.9 SP02 100% RESP 16 Constitutional no acute distress ENMT Mouth: no TMJ clicking Thyromental Distance: < 3.5 Finger Breadths (3.0) Mallampati Class: III Full upper denture Neck + limited neck extension Respiratory normal respiratory effort; no respiratory distress Auscultation: lungs clear to auscultation bilaterally; no wheezes Cardiovascular Rate/Rhythm: regular rate Heart Sounds: no murmur Vessels: no carotid bruit Occ beats Musculoskeletal Spine: + pain with cervical ROM Extremities: extremities normal to inspection Psychiatric Orientation: alert Lab Results Anesthesia Preop Results Results Anesthesia Widget: WBC 5.96 K/ul (4.8-10.8) 08/28/22 Hgb 14.7 g/dl (12.0-16.0) 08/28/22 Hct 43.4 % (37.0-47.0) 08/28/22 Plt 264 K/uL (130-400) 08/28/22 Na 138 mmol/L (136-145) 08/28/22 K 3.6 mmol/L (3.5-5.1) 08/28/22 Cl 104 mmol/L (98-107) 08/28/22 CO2 31 mmol/L (21-32) 08/28/22 BUN 12 mg/dl (6-23) 08/28/22 Creat 1.09 mg/dl (0.6-1.2) 08/28/22 Glucose Level 97 mg/dl (70-99(Fasting)) 08/28/22 PT 11.2 Seconds (9.0-12.0) 08/28/22 PTT 29.6 Seconds (21.0-31.0) 08/28/22 INR 1.1 (0.9-1.1) 08/28/22 Urine Color Dark Yellow 08/28/22 Urine Appearance Cloudy (Clear) A 08/28/22 Urine pH 5.0 (4.5-7.5) 08/28/22 Urine Specific Ray > 1.045 (1.000-1.030) H 08/28/22 Urine Protein Trace (Negative) H 08/28/22 Urine Glucose (UA) Negative (Negative) 08/28/22 Urine Ketones Trace (Negative) H 08/28/22 Urine Blood Negative (Negative) 08/28/22 Urine Nitrite Negative (Negative) 08/28/22 Urine Bilirubin Negative (Negative) 08/28/22 Urine Urobilinogen Negative (Negative) 08/28/22 Urine Leukocyte Esterase Trace (Negative) H 08/28/22 Urine WBC (Auto) >30 /hpf (0-5) H 08/28/22 Urine RBC (Auto) 0-4 /hpf (0-4) 08/28/22 Urine Hyaline Casts (Auto) 5-10 /lpf (0-5) H 08/28/22 Urine Epithelial Cells (Auto) >30 /lpf (0-5) H 08/28/22 Urine Bacteria (Auto) Negative (Negative) 08/28/22 Blood Type A Negative 08/28/22 Antibody Screen NEGATIVE 08/28/22 Testing Electrocardiogram Date: 08/28/22 SR with frequent PVCs in pattern of bigeminy Otherwise normal EKG per cardio Chest X-Ray Date: 08/28/22 Findings: + NAD Echocardiogram Date: 12/08/20 EF: 60-65% LV Function: normal RWMA: + none Other Findings: no LVH or no diastolic dysfunction Valvular Disease: + no significant valvular disease RV systolic pressure is normal Mild TR COVID-19 Risk Screen Screening Information COVID-19 Screen Date: 08/28/22 Exposure 21 Days Family/Household +COVID Last 21 Days: No Exposure 10 Days Any COVID Exposure Last 10 Days: No Symptoms Last 10 Days Experienced COVID Sx Last 10 Days: No + COVID 0-90 Days COVID + in Last 0-90 Days: No Risk Plan COVID Risk Plan: No Risk Identified Patient Education COVID Preop Screening Education Complete: Yes
[~2022-09-08 06:03] MED LIST changes: -ceFAZolin 1000MG 1,000 MG/7.5 ML SYR IV SCH; +ceFAZolin 2000MG 2,000 MG/15 ML SYR IV SCH
[2022-09-08] MEDS ORDERED: Nursing to Pharmacy Communication SCH (06:30)
[2022-09-08] MEDS ORDERED: CeleBREX 200 MG CAP ONE (06:38)
[2022-09-08] MEDS: ALLERGY Noted to ORDERED Medication SCH ×3 (06:42→12:51)
[2022-09-08] MEDS ORDERED: MIDAZOLAM HCL 1 MG/ML 2ML VIAL ONE (07:02)
[2022-09-08] MEDS ORDERED: fentaNYL citrate PF 100 MCG/2 ML VIAL ONE (07:02)
[2022-09-08] MEDS ORDERED: ceFAZolin 330 MG/ML 1 GM VIAL ONE (07:13)
--- NOTE | 2022-09-08 07:29 | Anesthesiology Consultation ---
Date of Service September 08, 2022 Assessment & Plan Chart Review Chart Review: Acceptable Risk for Surgery Proposed Anesthesia Anesthesia Type: General History Surgery Operation Date: 09/08/22 07:45 Proposed Procedures p C4-C5 Anterior Cervical Discectomy and Fusion, Spinal Cord Monitoring - Shai Fritz DO Height/Weight Height: 5 ft Weight: 72.7 kg Allergies Allergy/AdvReac Type Severity Reaction Status Date / Time ciprofloxacin [Cipro] Allergy Intermediate Diffuse Verified 09/08/22 06:21 rash ketorolac Allergy Intermediate Diffuse Verified 09/08/22 06:21 rash morphine Allergy Intermediate Diffuse Verified 09/08/22 06:21 rash tramadol Allergy Intermediate Diffuse Verified 09/08/22 06:21 rash Cipro Allergy Unknown UNK Verified 05/18/16 21:39 Medications Home Medications Medication Instructions Recorded Confirmed Last Taken sumatriptan succinate 100 mg 100 mg PO UD PRN MIGRAINES 11/23/20 08/22/22 12/06/20 06:00 tablet (Imitrex) oxycodone 5 mg tablet 5 mg PO Q6H PRN pain, severe #20 12/08/20 09/08/22 Unknown tabs celecoxib 200 mg capsule (Celebrex) 200 mg PO QAM 08/22/22 09/08/22 09/07/22 08:00 gabapentin 300 mg tablet,extended 300 mg PO TID 08/22/22 09/08/22 09/07/22 21:00 release 24 hr methocarbamol 750 mg tablet 750 mg PO TID 08/22/22 09/08/22 09/07/22 21:00 Active Medications Generic Name Dose Route Start Last Admin Trade Name Andres PRN Reason Stop Dose Admin Acetaminophen 1,000 mg 09/08/22 06:00 09/08/22 06:41 Acetaminophen 500 Mg Tab PO 09/08/22 18:00 1,000 mg PREOP HARRIS Administration Celecoxib 200 mg 09/08/22 06:00 09/08/22 06:52 Celebrex 200 Mg Cap PO 09/08/22 18:00 Not Given PREOP HARRIS Gabapentin 900 mg 09/08/22 06:00 09/08/22 06:41 Gabapentin 900 Mg Dose PO 09/08/22 18:00 900 mg PREOP HARRIS Administration Lactated Ringer's 1,000 mls @ 15 mls/hr 09/08/22 06:00 09/08/22 07:02 Lr IV 09/09/22 05:59 15 mls/hr .Q24H HARRIS Administration NPO Date Last Intake of Fluids: 09/08/22 Time Last Intake of Fluids: 04:00 Date Last Intake of Solids: 09/07/22 Time Last Intake of Solids: 14:00 Past Medical History Medical History History of blood transfusion 10+ years ago r/t surgical complications Hx MRSA infection Dx ~2007 ([facility]), in wound tx w/abx- "cleared" Hx of endometriosis No current issues Hx of renal calculi Migraines Smoker Ventricular bigeminy Noted during 11/2020 ACDF- monitored on telemetry floor post op- BMP WNL; HCO3- 27- no gap; troponin negative, no hypoxia- ECHO done to rule out structural causes. 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" per records Past Family History Family History Mother Family history of diabetes mellitus Past Surgical History Surgical History H/O total hysterectomy History of appendectomy History of bowel resection + colostomy (d/t bowel georgette during laparoscopic procedure) (colostomy later reversed) History of cholecystectomy History of colonoscopy History of colostomy reversal History of laparoscopy Hx of cervical spine surgery 2020 @ [facility] Nausea and vomiting after administration of anesthetic agent S/P cystoscopy with ureteral stent placement [place] teeth removed Social History Smoking Status: Current every day smoker tobacco type: cigarettes Smoking cigarettes per day: 5 cigs/day Do You Dip or Chew Tobacco: No Hx Alcohol Use: Yes alcohol intake frequency: holidays/special occasions only Hx Substance Use: No substance use type: does not use Review of Systems ROS Unobtainable: All systems reviewed & are unremarkable except as noted in HPI & below Eyes: as per Subjective / HPI Ear, Nose, Mouth, Throat: as per Subjective / HPI Respiratory: as per Subjective / HPI; no problem reported Cardiovascular: as per Subjective / HPI; no problem reported Gastrointestinal: as per Subjective / HPI Genitourinary (Female): as per Subjective / HPI Musculoskeletal: as per Subjective / HPI Neurologic: as per Subjective / HPI Psychiatric: as per Subjective / HPI Endocrine: as per Subjective / HPI Hematologic / Lymphatic: as per Subjective / HPI Allergy / Immunological: as per Subjective / HPI Physical Exam Vital Signs Last Vital Signs Temp 36.9 C 09/08/22 06:25 Pulse 75 09/08/22 06:25 Resp 20 09/08/22 06:25 BP 127/97 09/08/22 06:25 Pulse Ox 95 09/08/22 06:25 O2 Del Method Room Air 09/08/22 06:25 ENMT Mouth: + dentition abnormality Mallampati Class: II Neck normal visual inspection Respiratory normal respiratory effort; no respiratory distress Auscultation: lungs clear to auscultation bilaterally Cardiovascular Rate/Rhythm: regular rate and regular rhythm Psychiatric Orientation: alert and oriented x 3 Testing Electrocardiogram Date: 08/28/22 SR with frequent PVCs in pattern of bigeminy Otherwise normal EKG per cardio Chest X-Ray Date: 08/28/22 Findings: + NAD Echocardiogram Date: 12/08/20 EF: 60-65% LV Function: normal RWMA: + none Other Findings: no LVH or no diastolic dysfunction Valvular Disease: + no significant valvular disease RV systolic pressure is normal Mild TR
--- NOTE | 2022-09-08 07:40 | History & Physical Bridge Note ---
Date of Service September 08, 2022 History & Physical Bridge Note I have examined the patient, reviewed the History & Physical and in the interval since the performance of the History & Physical I have noted the following changes of clinical significance: no changes noted
--- NOTE | 2022-09-08 07:41 | History & Physical Report ---
Date of Service September 08, 2022 Assessment & Plan (1) Cervical stenosis of spinal canal: Plan: C4-C5 anterior cervical discectomy and fusion History of Present Illness Chief Complaint: Neck and arm pain Primary Care Provider: Kael Jeffrey This is a 46-year-old female presents with chronic persistent neck and arm and pain failing since course of nonoperative care she is here for surgical invention. Allergies Allergy/AdvReac Type Severity Reaction Status Date / Time ciprofloxacin [Cipro] Allergy Intermediate Diffuse Verified 09/08/22 06:21 rash ketorolac Allergy Intermediate Diffuse Verified 09/08/22 06:21 rash morphine Allergy Intermediate Diffuse Verified 09/08/22 06:21 rash tramadol Allergy Intermediate Diffuse Verified 09/08/22 06:21 rash Cipro Allergy Unknown UNK Verified 05/18/16 21:39 Home Medications Medication Instructions Recorded Confirmed Type sumatriptan succinate 100 mg 100 mg PO UD PRN MIGRAINES 11/23/20 08/22/22 History tablet (Imitrex) oxycodone 5 mg tablet 5 mg PO Q6H PRN pain, severe #20 12/08/20 09/08/22 Rx tabs celecoxib 200 mg capsule (Celebrex) 200 mg PO QAM 08/22/22 09/08/22 History gabapentin 300 mg tablet,extended 300 mg PO TID 08/22/22 09/08/22 History release 24 hr methocarbamol 750 mg tablet 750 mg PO TID 08/22/22 09/08/22 History Past Med/Surg History Medical History History of blood transfusion 10+ years ago r/t surgical complications Hx MRSA infection Dx ~2007 ([facility]), in wound tx w/abx- "cleared" Hx of endometriosis No current issues Hx of renal calculi Migraines Smoker Ventricular bigeminy Noted during 11/2020 ACDF- monitored on telemetry floor post op- BMP WNL; HCO3- 27- no gap; troponin negative, no hypoxia- ECHO done to rule out structural causes. 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" per records Surgical History H/O total hysterectomy History of appendectomy History of bowel resection + colostomy (d/t bowel georgette during laparoscopic procedure) (colostomy later reversed) History of cholecystectomy History of colonoscopy History of colostomy reversal History of laparoscopy Hx of cervical spine surgery 2020 @ [facility] Nausea and vomiting after administration of anesthetic agent S/P cystoscopy with ureteral stent placement [place] teeth removed Family History Mother Family history of diabetes mellitus Social History (Updated 12/11/20 @ 11:40 by Jefry Crane) Smoking Status: Current every day smoker Cigarettes Per Day: 5 cigs/day; Second Hand Exposure: Yes (around it a lot-at work); Do You Dip or Chew Tobacco: No; Tobacco Cessation Education Requested by Patient: No Hx Alcohol Use: Yes Hx Substance Use: No Preferred Language: [place]ib[place]ian Communication Ability: Effective Probation Counselor Required: No Beliefs That Will Affect Care: None Current Living Situation: Family Current Living Situation Comment: WITH DAUGHTER Other Information That Helps Us Care for You: No Feels Safe at Home: Yes Safety Concerns: Feels Safe At This Time Assistive Devices: Contacts and Denture - Upper Physical Exam Physical Exam: Patient is alert and oriented Heart regular rhythm Lungs clear Results & Data Results & Data Vital Signs (Past 12 Hours) Vital Signs Temp Pulse Resp BP Pulse Ox O2 Del Method 09/08/22 06:25 36.9 C 75 20 127/97 95 Room Air
[2022-09-08] MEDS ORDERED: PROMETHAZINE HCL 12.5 MG in SODIUM CHLORIDE 0.9% 50 ML IV PRN ×2 (07:50→11:42)
[2022-09-08] MEDS ORDERED: ALBUTEROL 0.083% NEBU SOLN 3 ML VIAL INH PRN (07:50)
[2022-09-08] MEDS ORDERED: ATROPINE SULFATE 0.1 MG/ML 10ML SYR IV PRN (07:50)
[2022-09-08] MEDS ORDERED: ONDANSETRON INJ 2 MG/ML 2 ML VIAL IV PRN ×2 (07:50→11:42)
[2022-09-08] MEDS ORDERED: ePHEDrine sulfate 50 MG/ML AMP IV PRN (07:50)
[2022-09-08] MEDS ORDERED: HYDROmorphone INJ 2 MG/ML SYR/VIAL ONE (08:30)
[2022-09-08] MEDS ORDERED: ROCURONIUM BROMIDE 10 MG/ML 5 ML VIAL IV ONE (08:53)
[2022-09-08] MEDS ORDERED: PROPOFOL IV EMULSION 10 MG/ML 20 ML VIAL IV ONE ×2 (08:53→09:00)
[2022-09-08] MEDS ORDERED: LIDOCAINE 2% MPF LOCAL 5 ML VIAL INFIL ONE (08:53)
[2022-09-08] MEDS ORDERED: ONDANSETRON INJ 2 MG/ML 2 ML VIAL ONE (08:53)
[2022-09-08] MEDS ORDERED: DEXAMETHASONE SOD INJ 4 MG/ML VIAL ONE (08:53)
[2022-09-08] MEDS ORDERED: FLOSEAL HEMOSTATIC MATRIX 10ML TOP ONE (09:57)
--- NOTE | 2022-09-08 10:00 | Operative Report ---
Post Operative Report Pre & Post Diagnosis Operation Date: 09/08/22 07:45 Pre-Op Diagnosis: Cervical spinal stenosis with radiculopathy Post-Op Diagnosis: Same I identified the patient and participated in the time-out.: Yes Procedure Operation Date: 09/08/22 07:45 Actual Procedures #1 anterior cervical discectomy with bilateral foraminotomies C4-C5. #2 anterior cervical arthrodesis C4-C5. #3 placement of globus coalition interbody cage 7 mm in height filled with I factor at C4-C5. Surgeon Shai Fritz, DO Nut Former Jace Oconnor Estimated Blood Loss 10 Findings Consistent with Post-Op Diagnosis Specimens None Indications This is a 46-year-old female who presents above-mentioned diagnosis of failed course of nonoperative care is here for surgical invention. Description of Procedure Patient was met with identified informed consent obtained. Patient was then taina en to the operative suite underwent a patient placed in spine position jacks table with head Rowe header up. All bony promises well-padded eyes inspected to ensure no external pressure placed upon up at this point the anterior cervical spine was prepped and draped in a sterile fashion. With the assistance of fluoroscopy identified the C4-C5 disc space and a transverse incision was placed along the right anterior aspect of the cervical spine overlying this region. Blunt dissection was carried out down to but I experience significant adhesions of the anatomy secondary to the previous gan rgery and elected to extend the excision and approach from the left side of the patient. Blunt dissection was carried out down to and exposing the anterior cervical spine at C4-C5. A self-retaining tractors placed. Then performed a complete discectomy of C4-C5 out to the uncovertebral joints bilaterally. Onia distracting pins utilized to assist in visualization. Removed all posterior annular fibers longitudinal ligament bilateral foraminotomies performed. Endplates burred to subcortical bleeding bone and a 7 mm globus coalition cage tapped in position and screwed into place with fluoroscopic visualization. The incision was then copiously irrigated and a 10 round [place] drain inserted. Was then closed with subcutaneous Vicryl and 4 Monocryl for final skin closure. Steri-Strip sterile dressings placed. Patient awakened and taken to PACU in stable condition. Please note spinal cord monitoring was utilized at the procedure no changes noted. Lastly Jace Oconnor was present at the entire surgeon while the patient positioning complex portions of the surgery and final skin closure. I attest to the content of the Intraoperative Record and any orders documented therein. Any exceptions are noted below.
[2022-09-08] MEDS ORDERED: NEOSTIGMINE METHYLSULFATE 1 MG/ML 10ML VIAL ONE (10:08)
[2022-09-08] MEDS ORDERED: GLYCOPYRROLATE 0.2 MG/ML VIAL ONE (10:08)
[2022-09-08] MEDS: HYDROmorphone INJ 1 MG/ML SYRINGE IV PRN ×8 (10:31→22:34)
--- NOTE | 2022-09-08 11:08 | Anesthesiology Progress Note ---
Date of Service September 08, 2022 Anesthesia Post Procedure Vital Signs Vital Signs: Temp Pulse Pulse Resp BP Pulse Ox O2 Del Method 09/08/22 10:45 65 12 138/83 100 Oxymask 09/08/22 10:35 62 14 146/93 H 100 Oxymask 09/08/22 10:25 36.0 C L 70 16 155/78 H 100 Oxymask 09/08/22 06:25 36.9 C 75 20 127/97 95 Room Air O2 Flow Rate 09/08/22 10:45 10 09/08/22 10:35 10 09/08/22 10:25 10 09/08/22 06:25 Pain Intensity Bilateral Neck: Pain Intensity: 7 Anterior Neck: Pain Intensity: 6 Transfer of Care Handoff Completed per policy Notes Mental Status: alert / awake / arousable Patient Amnestic to Procedure: Yes Nausea / Vomiting: adequately controlled Pain: adequately controlled Airway Patency, RR, SpO2: stable & adequate BP & HR: stable & adequate Hydration State: stable & adequate Anesthetic Complications: no major complications apparent and Pt Satisfied with anesthetic care
[2022-09-08] MEDS ORDERED: ALUMINUM/MAGNESIUM SUSP 30 ML UDC PO PRN (11:42)
[2022-09-08] MEDS ORDERED: SOD PHOSPHATE/SOD BIPHOSPHATE ENEMA 132 ML BTL PR PRN (11:42)
[2022-09-08] MEDS ORDERED: NALOXONE HCL 0.4 MG/1 ML VIAL/CARP IV PRN (11:42)
[2022-09-08] MEDS ORDERED: LORazepam 0.5 MG TAB PO PRN (11:42)
[2022-09-08] MEDS ORDERED: ONDANSETRON 4 MG OD TAB PO PRN (11:42)
[2022-09-08] MEDS ORDERED: METOCLOPRAMIDE HCL INJ 5 MG/ML 2 ML VIAL IV PRN (11:42)
[2022-09-08] MEDS ORDERED: diphenhydrAMINE Capsule 25 MG CAP PO PRN (11:42)
[2022-09-08] MEDS ORDERED: LORazepam 2 MG/1 ML VIAL IV PRN (11:42)
[2022-09-08] MEDS ORDERED: dexAMETHasone 8 MG in SYRINGE 0 ML IV PRN (11:42)
[2022-09-08] MEDS ORDERED: DO NOT ADMINISTER FLU VACCINE PRN (11:42)
[2022-09-08] MEDS ORDERED: RACEPINEPHRINE 2.25% NEBU SOLN 0.5 ML VIAL INH PRN (11:42)
[2022-09-08] MEDS ORDERED: HYDROmorphone INJ 0.5 MG/0.5 ML SYR IV PRN (11:42)
[2022-09-08] MEDS ORDERED: FAMOTIDINE 20 MG TAB PO PRN (11:42)
[2022-09-08] MEDS ORDERED: bisacodyL 10 MG SUPP PR PRN (11:42)
[2022-09-08] MEDS ORDERED: MAGNESIUM HYDROXIDE SUSP 30 ML UDC PO PRN (11:42)
[2022-09-08] MEDS ORDERED: DO NOT ADMINISTER PNEUMOCOCCAL VACCINE PRN (11:42)
[2022-09-08] MEDS ORDERED: hydrOXYzine HCl 25 MG TAB PO PRN (11:42)
[2022-09-08] MEDS ORDERED: ACETAMINOPHEN 500 MG TAB PO PRN (11:42)
[2022-09-08] MEDS ORDERED: ACETAMINOPHEN 1,000 MG/100 ML VIAL IV PRN (11:42)
[2022-09-08] MEDS: LACTATED RINGER'S 1,000 ML IV SCH ×2 (11:57→16:58)
--- NOTE | 2022-09-08 12:11 | Fluoroscopy Report ---
FL cervical 2-3V CLINICAL HISTORY: ACDF C4-5 COMPARISON STUDY: 12/07/2020 FLUOROSCOPY TIME: 10 seconds FLUOROSCOPY IMAGES: 2 EXPOSURE DOSE: 0.6 mGy FINDINGS: Surgical sponge within the anterior operative bed. Anterior plate and screw fusion hardware and discectomy redemonstrated at what appears to be the C5-C7 levels. Interval anterior fusion with discectomy at C4-C5. The hardware appears intact. No acute fracture. Endotracheal tube is present. No te that the images were submitted following the completion of the surgery. IMPRESSION: Fluoroscopic assistance as above. ACT 112: Negative or not required by law. Electronically signed by: Wayne Tran M.D. 09/08/2022 12:09 PM
[2022-09-08] MEDS: oxyCODONE HCL IR 5 MG TAB (IMMEDIATE RELEASE) PO PRN ×2 (13:33→18:30)
[2022-09-08] MEDS: METHOCARBAMOL 750 MG TABLET PO SCH ×2 (13:35→20:17)
[2022-09-08] MEDS: GABAPENTIN 300 MG CAP PO SCH ×2 (13:35→20:18)
[2022-09-08] MEDS: ceFAZolin 2000MG 2,000 MG/15 ML SYR IV SCH (15:47)
[2022-09-08] MEDS ORDERED: DOCUSATE SODIUM/SENNA 50/8.6MG TAB PO SCH (21:00)
[2022-09-09] MEDS: ceFAZolin 2000MG 2,000 MG/15 ML SYR IV SCH (00:09)
[2022-09-09] MEDS: HYDROmorphone INJ 1 MG/ML SYRINGE IV PRN ×3 (02:37→09:47)
[2022-09-09] MEDS: LACTATED RINGER'S 1,000 ML IV SCH (02:39)
[2022-09-09] MEDS: oxyCODONE HCL IR 5 MG TAB (IMMEDIATE RELEASE) PO PRN ×3 (04:40→12:31)
[2022-09-09] MEDS ORDERED: POLYETHYLENE (MIRALAX) 17 GM PACK PO SCH (06:00)
[2022-09-09] MEDS: GABAPENTIN 300 MG CAP PO SCH ×2 (08:34→13:05)
[2022-09-09] MEDS: METHOCARBAMOL 750 MG TABLET PO SCH ×2 (08:34→13:05)
[2022-09-09] MEDS ORDERED: dexAMETHasone 6 MG in SYRINGE 0 ML IV SCH (09:00)
--- NOTE | 2022-09-09 11:10 | Discharge Summary ---
Date of Service September 09, 2022 Admission HPI Per Admitting Provider This is a 46-year-old female presents with chronic persistent neck and arm and pain failing since course of nonoperative care she is here for surgical invention. Principal Diagnosis Cervical stenosis with radiculopathy Discharge Data Allergies Allergy/AdvReac Type Severity Reaction Status Date / Time ciprofloxacin [Cipro] Allergy Intermediate Diffuse Verified 09/08/22 06:21 rash ketorolac Allergy Intermediate Diffuse Verified 09/08/22 06:21 rash morphine Allergy Intermediate Diffuse Verified 09/08/22 06:21 rash tramadol Allergy Intermediate Diffuse Verified 09/08/22 06:21 rash Cipro Allergy Unknown UNK Verified 05/18/16 21:39 Procedures Performed Operation Date: 09/08/22 07:45 Actual Procedures p C4-C5 Anterior Cervical Discectomy and Fusion, Spinal Cord Monitoring(Not Applicable) - Shai Fritz DO Ordered Studies 09/08/22 07:45 FL cervical 2-3V Routine Hospital Course (1) Cervical stenosis of spinal canal: Patient underwent anterior cervical discectomy and fusion tolerated this well was taken to the orthopedic floor postoperative. Postop day 1 she was swallowing well. No hoarseness. Arm symptoms markedly improved. Excellent strength testing. Subsequently discharged home. Discharge orders and instructions found in chart for further review. Total Time Total Time Spent Total Time Spent (In Minutes): 20 minutes Discharge Plan Discharge Items Patient Disposition: Home - Self-Care Reason For Visit: Spinal Stenosis Cervical Region Discharge Diagnosis: Cervical spinal stenosis with radiculopathy Activity: As commented below Non-emergency contact: Primary Care Provider Call non-emergency contact if: you have any medication questions Follow-up/Referrals: Kael Jeffrey D.O. [Primary Care Provider] - Diet: Regular Addtl Attending Provider Instructions: ACTIVITY RECOMMENDATIONS: SELF CARE INSTRUCTIONS AFTER CERVICAL FUSIONS 1. No smoking. Smoking drastically decreases the chance of a solid fusion. 2. No bending, lifting more than 5 pounds, or twisting (roll like a log when turning in bed). 3. You may shower 3 days after surgery. Thoroughly dry wound. Do not soak in the tub. 4. Cervical collar: Must be worn at all times including sleeping. You may remove the brace only to bath, eat and if you are sitting in a recliner. 5. Please walk as much as you can for exercise. Gradually increase the distance that you walk as your endurance increases. SPECIAL CARE INSTRUCTIONS: VERY IMPORTANT TO READ AND REVIEW A. Do not take any anti-inflammatory medications (i.e. Indocin, Advil, Aspirin, Naprosyn, Aleve, Motrin, etc.) as these may inhibit the chance of a solid fusion. Tylenol is okay to take. B. Your surgical incision has been closed with a cosmetic suture under the skin that will dissolve in about 6 weeks. In 14 days, you can use a pair of clean scissors and cut the suture that is left outside of the skin at the ends of your incision. C. Complications are uncommon, but please contact us if you have any signs or symptoms of: 1. wound infection (fever higher than 102.5 degrees F, redness, separation of wound, drainage, or increasing pain from the incision) 2. blood clots in legs (pain, swelling, redness and warmth in legs) 3. urinary tract infection (fever higher than 102.5 degrees, burning upon urination or increased frequency of urination) 4. nerve problems (inability to walk on your toes or heels, numbness, loss of bowel or bladder control) 5. any other symptoms that concern you. D. Please call the office at if you have any concerns or questions about your operation or recovery. MANAGING PAIN AFTER SPINAL SURGERY 1. Narcotic medication is intended for short-term use and will be provided for surgical pain. Surgical pain usually lasts for a period of 4-6 weeks. Narcotic medication includes Percocet, Vicodin, Darvocet, Tylenol #3 or Lortab. 2. Longer-term pain is more appropriately treated with non-narcotic medication such as Tylenol ES. 3. Muscle spasm is not appropriately treated with narcotics. Muscle relaxers such as Soma, Flexeril or Skelaxin can be used along with Tylenol ES. 4. Remember that we all live with some "aches and pains". This is not unusual or uncommon after an injury or as we get older. 5. We will provide appropriate medication within the normal guidelines of their prescribed use. We will also be very cautious and aware of potential abuse and extended duration of patients' medication needs. 6. Please allow 2-3 days to process refills. Prescriptions will not be mailed but must be picked up at the office. FOLLOW UP VISIT: Keep your scheduled follow-up appointment. Any questions, please call the office at . Pending Studies at Discharge: No Stand-Alone Forms: My [facility], Smoking Cessation Medications and DC Order Prescriptions: New oxycodone 5 mg tablet 5 mg PO Q6H PRN (Reason: pain, severe) Qty: 30 0RF Continued sumatriptan succinate [Imitrex] 100 mg Tablet 100 mg PO UD PRN (Reason: MIGRAINES) oxycodone 5 mg tablet 5 mg PO Q6H PRN (Reason: pain, severe) Qty: 20 0RF celecoxib [Celebrex] 200 mg Capsule 200 mg PO QAM methocarbamol 750 mg Tablet 750 mg PO TID gabapentin 300 mg Tablet Extended Release 24 Hr 300 mg PO TID Discharge Orders: Discharge Order (Routine); Ordered 09/09/22 Ordered By: Shai Fritz Admission Data Admit Date/Time: 09/08/22 10:03 Attending Provider: Shia Fritz Admit Provider: Shai Fritz Primary Care Provider: Kael Jeffrey
== END 2022-09-09 13:27 | disposition home or self-care (01) | DRG 473 ==
LOC: ASU 06:03 → INTOOBSV 10:03 → 3E 10:03